=== PATIENT | male | born 1980 | race Caucasian/White ===

== ENCOUNTER 2017-11-12 12:43 | Observation (INO) | payer OTHER ==
[2017-11-12] VITALS (7 sets, daily range): BP systolic 132–152; BP diastolic 85–94
[2017-11-12] MEDS ORDERED: NORMOSOL R SOLN(*) 1000 ML BAG 1,000 ML IV PRN (13:05)
[2017-11-12] MEDS ORDERED: ERTAPENEM(*) 1 GM VIAL 1 GM in NS(*) 0.9% 100 ML ADDVANT BAG 100 ML IVPB ONE (13:05)
[2017-11-12] MEDS ORDERED: NORMOSOL R SOLN(*) 1000 ML BAG 1,000 ML IV ONE (13:10)
[2017-11-12] MEDS ORDERED: FAMOTIDINE 20 MG TAB PO ONE (13:10)
[2017-11-12] MEDS ORDERED: NS(*) 0.9% 100 ML BAG 100 ML ONE (13:11)
[2017-11-12] MEDS ORDERED: ERTAPENEM 1 GM VIAL ONE (13:11)
[2017-11-12] MEDS ORDERED: FAMOTIDINE 20 MG TAB ONE (13:12)
--- NOTE | 2017-11-12 13:16 | Gen Surgery History & Physical ---
History of Present Illness Chief Complaint Right lower quadrant abdominal pain History of Present Illness 37-year-old otherwise healthy male presented to the urgent care center with one- day history of abdominal pain that is now on the right lower quadrant. It started a little over 24 hours ago and has progressively gotten worse. He's had some nausea but no emesis. No fevers or chills. No constipation or diarrhea. His white blood cell count was found to be over 20,[address] scan was consistent with acute appendicitis. Incidentally noted was a metallic foreign body at the opening to the appendix. He has no other medical problems and he's never before had surgery. He takes no medications and has no known drug allergies. Review of Systems All Systems Reviewed/Normal: Yes, Except as Noted Gastrointestinal: Nausea, Abdominal Pain Exam General Appearance: Alert, Awake, No Acute Distress, Afebrile Neuro: No Gross deficits Eyes: PERRLA GI: Other (Soft, RLQ TTP with focal peritonitis) Extremities: Warm, Perfused Assessment and Plan Problems: (1) Acute appendicitis Status: Acute Assessment & Plan: 11/12/17: We'll admit, start IV antibiotics, IV fluids, nothing by mouth, and to OR for a lap appendectomy. I have explained this plan including the surgery to him in detail as well as the alternatives, risks, and expected recovery. He indicates his understanding of this discussion and his questions have been answered. He would like to proceed with this plan including surgery. Condition Stable. Time Spent: < 30 min Venous Thromboembolism VTE Risk Physician Assess for VTE Risk: Yes Patient's VTE Risk: Low VTE Diagnostic Test 2 Days Prior to Admit: No Antithrombotics Is Pt On Any Antithrombotics?: No Problem Qualifiers (1) Acute appendicitis: Acute appendicitis type: with localized peritonitis Qualified Codes: K35.3 - Acute appendicitis with localized peritonitis MARIAM WHITE MD Nov 12, 2017 13:16
[2017-11-12] MEDS ORDERED: ROPIVACAINE 0.5% 20 ML VIAL ONE (13:17)
[2017-11-12] MEDS ORDERED: fentaNYL CITR 100 MCG/2 ML AMP ONE ×2 (13:33→16:00)
[2017-11-12] MEDS ORDERED: DEXAMETHASONE SOD PHOS 10MG/ML ONE (13:34)
[2017-11-12] MEDS ORDERED: ONDANSETRON 4 MG/2 ML VIAL ONE (13:34)
[2017-11-12] MEDS ORDERED: ROCURONIUM BROM 10 MG/ML 10 ML ONE (13:34)
[2017-11-12] MEDS ORDERED: LIDOCAINE MPF 1% 5 ML VIAL ONE (13:34)
[2017-11-12] MEDS ORDERED: PROPOFOL EMUL(*) 10MG/ML 20 ML 20 ML ONE (13:34)
[2017-11-12] MEDS ORDERED: SUGAMMADEX SOD 500 MG/5 ML SDV ONE (15:15)
[2017-11-12] MEDS ORDERED: NS(*) 0.9% 1000 ML BAG 1,000 ML IV PRN (15:36)
[2017-11-12] MEDS ORDERED: MEPERIDINE 50 MG/ML SYR ONE (15:38)
[2017-11-12] MEDS ORDERED: MORPHINE 2 MG/ML SYR IVP PRN (15:40)
[2017-11-12] MEDS ORDERED: ONDANSETRON 4 MG/2 ML VIAL IVP PRN (15:40)
[2017-11-12] MEDS ORDERED: FLUSH 10 ML SYR IVP PRN (15:40)
--- NOTE | 2017-11-12 15:57 | Post Operative Progress Note ---
Post Operative Progress Note Date: Nov 12, 2017 Time: 15:50 Surgeon: Yvonne Dictation number: [id number] Anesthesia: GETA by Dr. Lee Pre-Op Diagnosis: Acute appendicitis Post-Op Diagnosis: TREMAINE Findings: Inflamed purulent appendix, no perforation Small nodule peritoneal lesion in RLQ Procedure(s): Lap appy Laparoscopic excision of peritoneal lesion Specimen Removed:(May be N/A): 1) Appendix 2) Peritoneal lesion Complications: None Fluids: See anesthesia record Estimated Blood Loss: Minimal Date OP Note Dictated: Nov 12, 2017 Time OP Note Dictated: 15:51 MARIAM WHITE MD Nov 12, 2017 15:57
[2017-11-12] MEDS: FAMOTIDINE 20 MG TAB PO SCH (20:55)
[2017-11-12] MEDS: DOCUSATE SODIUM 100 MG CAP PO SCH (20:55)
[2017-11-13 04:01] VITALS: BP 110/77
[2017-11-13 07:45] VITALS: BP 124/81
[2017-11-13] MEDS ORDERED: PER PO (08:02)
[2017-11-13] MEDS ORDERED: AMOX1TAB9 PO (08:02)
[2017-11-13] MEDS ORDERED: DOCU-202 PO (08:02)
--- NOTE | 2017-11-13 08:05 | Short(Outpt) Discharge Summary ---
Discharge Summary Reason for Hosp/Final Diag: (1) Acute appendicitis Status: Acute Hospital Course & Plan: 11/12/17: We'll admit, start IV antibiotics, IV fluids , nothing by mouth, and to OR for a lap appendectomy. I have explained this plan including the surgery to him in detail as well as the alternatives, risks, and expected recovery. He indicates his understanding of this discussion and his questions have been answered. He would like to proceed with this plan including surgery.h 11/13/17: POD#1 s/p lap appy. Doing well. HR coming down. Afebrile. Will give 1 more dose of ertapenum this morning and will send home today on 5 days of augmentin. Departure Discharge to: Home, Self Care Discharge Instructions Home Meds Active Scripts Amoxicillin/Potassium Clav (AMOX TR-K CLV 875-125 MG TAB) 1 Each Tablet, 1 TAB PO BID, #10 TAB 0 Refills Prov:MARIAM WHITE MD 11/13/17 Oxycodone/Acetaminophen (OXYCODONE/ACETAMINOPHEN 5MG/325 MG) 5 Mg/325 Mg Tab, 1- 2 TAB PO Q4H Y for MODERATE PAIN, #30 TAB 0 Refills Prov:MARIAM WHITE MD 11/13/17 Docusate Sodium (DOCUSATE SODIUM) 100 Mg Capsule, 1 CAP PO BID, #30 CAPSULE 0 Refills Prov:MARIAM WHITE MD 11/13/17 Follow up Referrals: General Surgery - 11/28/17 @ Surgery, General with Mariam White Md You have a follow up appointment scheduled with Dr. White on 11/28/17, at 9:30am. Diet: Regular Activity: As Tolerated Special Instructions: You may remove the white surgical dressings on 11/14/17, then you can shower. After showering, leave the incisions open to air but leave the steristrips in place until they fall off on their own. Do not immerse the incisions for 2 weeks. Problem Qualifiers (1) Acute appendicitis: Acute appendicitis type: with localized peritonitis Qualified Codes: K35.3 - Acute appendicitis with localized peritonitis MARIAM WHITE MD Nov 13, 2017 08:04
[2017-11-13] MEDS ORDERED: IBUP600T22 PO (08:19)
[2017-11-13] MEDS ORDERED: ERTAPENEM(*) 1 GM VIAL 1 GM in NS(*) 0.9% 100 ML ADDVANT BAG 100 ML IVPB ONE (08:30)
[2017-11-13] MEDS ORDERED: ERTAPENEM(*) 1 GM VIAL 1 GM in NS(*) 0.9% 100 ML ADDVANT BAG 100 ML IVPB SCH (09:00)
[2017-11-13] MEDS ORDERED: NS(*) 0.9% 250 ML BAG 250 ML ONE (09:12)
[2017-11-13] MEDS: DOCUSATE SODIUM 100 MG CAP PO SCH (09:13)
[2017-11-13] MEDS: FAMOTIDINE 20 MG TAB PO SCH (09:13)
--- NOTE | 2017-11-15 04:42 | OPERATIVE REPORT 1 ---
EVENT DATE: November 12, 2017 SURGEON: Anatoly Russell MD ANESTHESIOLOGIST: Karan Lee MD ANESTHESIA: General PREOPERATIVE DIAGNOSIS Acute appendicitis. POSTOPERATIVE DIAGNOSIS Acute appendicitis. PROCEDURE PERFORMED Laparoscopic appendectomy. COMPLICATIONS None. CONDITION Stable. ESTIMATED BLOOD LOSS Minimal. FINDINGS This patient had an inflamed, purulent appendix, but no perforation or phlegmon. There was a small nodule on the peritoneum in the right lower quadrant, as well, that I removed and sent to pathology. INDICATIONS This is a 37-year-old gentleman who presented to Urgent Care with right lower quadrant pain. His abdominal pain started a little over 24 hours ago. They sent him over for a CAT scan, which revealed appendicitis, and his white blood cell count was a little over 20,000. They consulted me, and I admitted him for an appendectomy. DESCRIPTION OF PROCEDURE The patient was brought to the operating room, placed supine on the operating table. General endotracheal anesthesia was administered, and his abdomen was prepped and draped in a sterile fashion. Timeout was completed, and I injected the infraumbilical skin with 0.5% bupivacaine plain. I made a curvilinear smiley face type incision in the infraumbilical area and dissected through the dermis and subcutaneous fat. I identified the underlying fascia and made a vertical incision in the fascia and grasped the fascial edges with the Alexy clamps. I placed two interrupted 0 Vicryl sutures through the fascial defect and inserted a 12 mm Tiffanie type port through this wound and secured the sutures. I insufflated the peritoneal cavity to 15 mmHg and inserted a 5 mm 30- degree scope through this port. Next, under direct visualization, I placed a 5 mm port in the suprapubic midline, a 5 mm port in the left lower quadrant. The patient was placed in Trendelenburg and planed toward his left. I immediately identified the very inflamed appendix and mesoappendix. It was difficult to grasp, but ultimately I was able to grasp the mesoappendix and divide it with the harmonic scalpel all the way down to the base of the appendix, flush with the cecum, and then I divided the base of the appendix flush with the cecum with the endo LYNNE 45 mm stapler with a blue load. I then placed the appendix in a surgical specimen retrieval bag and removed from the abdomen through the umbilical port site. There was arterial bleeding from the appendiceal artery. This was grabbed and controlled with a harmonic scalpel, and then I placed some clips on it, as well. There was also some oozing from the staple line. This was controlled with clips, as well. I noticed the nodule in the peritoneum just anterior to where the cecum was, and I removed this with endoscopic scissors and removed it and passed it off the field and sent to pathology. There was a peritoneal defect that I closed with running 3-0 Vicryl sutures. I then irrigated and dried the right lower quadrant and removed all fluid from the right lower quadrant to the pelvis. I looked around the abdomen for any other abnormalities and found none. I then placed hemostatic powder in the right lower quadrant, which covered the divided mesoappendix and the staple line. I then pulled the viscera and omentum down so they covered the operative site. I then removed the 5 mm port, inspected the peritoneal surfaces for bleeding and there was none. I then desufflated the abdomen and removed the umbilical port and then placed another 0 Vicryl figure-of-8 suture in the vertical fascial defect and tied all three of these down with good reapproximation of the fascial edges and no remaining fascial defect. I then closed the skin with 4-0 Monocryl subcuticular suture. The skin was cleaned and dried, and Steri-Strips were applied, followed by sterile surgical dressings. The patient was awakened and extubated in the operating room and transported to the recovery room in stable condition, having tolerated the procedure without any apparent problems. GLYNN
== END 2017-11-13 07:59 | disposition home or self-care (01) ==
LOC: OR 12:43 → MED 16:45
PROVIDERS: ADMIT Surgery; ATTEND Surgery
DX: K35.3 Acute appendicitis with localized peritonitis (principal)
CPT/HCPCS: 44970; 88304; 88305; G0378; J1100; J1335; J2001; J2175; J2405; J2704; J2795; J3010; J7050

== ENCOUNTER → 2017-11-12 | Outpatient (CLI) | payer OTHER ==
[~2017-11-12] MED LIST: AMOX1TAB9 PO; DOCU-202 PO; IBUP600T22 PO; IOPAMIDOL 76% 100 ML INFUS BTL 100 ML ONE; PER PO
--- NOTE | 2017-11-12 12:28 | RADIOLOGY IMAGING REPORT ---
FACILITY: PATIENT NAME: Jose F Maurer : 1980 MR: [id number] V: [id number] EXAM DATE: ORDERING PHYSICIAN: MARIAM DYKES TECHNOLOGIST: Location: [facility] [place] Patient: Jose F Maurer : 1980 Visit/Account:[id number] Date of Sevice: 11/12/2017 EXAMINATION: CT abdomen and pelvis with and without contrast COMPARISON: None. HISTORY: Right lower quadrant pain. PROCEDURE: Multiplanar contrast enhanced CT of the abdomen and pelvis with and without 100 mL intrave nous Isovue 370. One of the following dose optimization techniques was utilized in the performance of this exam: Automated exposure control; adjustment of the mA and/or kV according to the patient's siz e; or use of an iterative reconstruction technique. Specific details can be referenced in the [facility]'s radiology CT exam operational policy. FINDINGS: Visualized thorax: Negative. Liver: Negative. Gallbladder and biliary system: Negative Spleen: Spleen size is normal. Pancreas: Negative. Adrenal glands: Negative. Kidneys and bladder: No renal mass or evidence of an obstructive uropathy. Urinary bladder is unrema rkable. Vessels: Within normal limits. Bowel and mesentery: Stomach is within normal limits. Small bowel is unremarkable. 17 mm appendix wit h mucosal hyperemia and periappendiceal inflammation. 7 mm metallic foreign body in the region of the appendiceal base no definite perforation is identified although the proximal appendiceal wall is obs cured by streak artifact from the metallic foreign body. No extraluminal gas or fluid collection. Sma ll amount of stool in the colon. No other site of bowel or mesenteric inflammation. Pelvic organs: Negative. Lymph nodes: No adenopathy. Free air/free fluid: Small amount nonspecific but presumably reactive fluid in the dependent pelvis. No organized fluid collection. No pneumoperitoneum. Abdominal wall and osseous structures: Small fat-containing umbilical hernia. Tiny fat-containing ing uinal hernias. Osseous structures are intact. IMPRESSION: 1. Acute appendicitis with a 7 mm metallic foreign body in the proximal appendix. 2. Small amount of nonspecific fluid in the dependent pelvis but no evidence of an organized abscess or pneumoperitoneum. Results were discussed with MARIAM DYKES at 11/12/2017 12:24 PM. Report Dictated By: Jamaal Townsend MD at 11/12/2017 12:13 PM Report E-Signed By: Jamaal Townsend MD at 11/12/2017 12:24 PM WSN:[id number]
== END ==
LOC: CT 10:52
PROVIDERS: ATTEND Nurse Practitioner Family
DX: K35.89 Other acute appendicitis (principal)
CPT/HCPCS: 74178; Q9967

== ENCOUNTER → 2017-11-12 | Outpatient (REF) | payer OTHER ==
[~2017-11-12] MED LIST changes: -IOPAMIDOL 76% 100 ML INFUS BTL 100 ML ONE
[2017-11-12 10:16] LABS: PLATELET COUNT, AUTOMATED 257 K/uL (150-450)
== END ==
PROVIDERS: ATTEND Nurse Practitioner Family
DX: R10.31 Right lower quadrant pain (principal)
CPT/HCPCS: 82040; 82247; 82310; 82374; 82435; 82565; 82947; 84075; 84132; 84155; 84295; 84450; 84460; 84520; 85025